=== PATIENT | female | born 1940 | race Two or more races ===

== ENCOUNTER 2025-04-28 11:26 | Emergency (ER) | payer OTHER ==
[~2025-04-28] VITALS: Ht 167.6 cm; Wt 45.4 kg
[~2025-04-28 11:26] MED LIST: ALBUPOW26 XX; ASPI81CH43 PO; ATEN-60 PO; GABA300C PO; LOSA-534 PO; SIMV20TA20 PO; SIMV5TAB14 PO
[2025-04-28 12:19] VITALS: PULSE 97; RESP 12; O2SAT 99
--- NOTE | 2025-04-28 12:22 | ED.PDOC ---
GI ASSESSMENT HPI Comments 87-year-old female with a PMHx of dementia, neuropathy, A. Fib, diabetes, possible liver cancer (awaiting biopsy scheduled on 15 May 2025), recent biliary duct stent done in [facility] (last week) was brought via EMS with chief complaints of nausea, vomiting and hematemesis. Patient's family reports that today morning the patient had nausea and a few episodes of vomiting with hematemesis. EMS found blood in the trash bin and family reports of also noting that her stool was dark black in color since today morning. They report she is A&O x2 which is her baseline, is forgetful due to dementia and she was hospitalized for 1 week, last week at [facility] as she had sudden onset of jaundice and was taken to urgent care who urged them to take her visit the hospital. A CT scan at [facility] resulted a mass in the patient's liver, possibly liver cancer and the patient is awaiting for biopsy which is scheduled on 15 May 2025. Patient was discharged on 04/23/2025 (5 days ago) home from [facility] after a biliary stent was placed. Family also complains of bilateral leg swelling which is new. Patient's blood pressure was 85/28mmHg on admission. Chief Complaint: General Weakness Time Seen by MD: 11:34 Reviewed Notes: Medications, Allergies Allergies: Coded Allergies: NO KNOWN ALLERGIES (Unverified , 12/23/11) Home Meds Reported Medications Albuterol (Albuterol) Pow, 1 XX PRN 12/23/11 Gabapentin (Neurontin) 300 Mg Cap, 300 MG PO BID 12/23/11 Aspirin (Asa) 81 Mg Ch, 81 MG PO DAILY 12/23/11 Simvastatin (Simvastatin) 20 Mg Tab, 20 PO HS 12/23/11 Simvastatin (Simvastatin) 5 Mg Tab, 5 MG PO HS 12/23/11 Losartan Potassium (Losartan Potassium) 50 Mg Tab, 50 MG PO DAILY 12/23/11 Atenolol (Atenolol) 25 Mg Tab, 25 MG PO DAILY 12/23/11 Information Source: Legal Guardian Mode of Arrival: EMS Timing: Hours Duration: Minutes Prehospital treatment: None Vomitus: Bloody Stool: Black Recent: Recent Surgery (Biliary duct stent placed last week) Recent Hx of: Diabetes, Liver Disease Modifying Factors: Nothing Associated sign and symptoms: Nausea, Vomiting Past Medical History PAST MEDICAL HISTORY: Asthma, High Lipids, HTN Surgical History: Hysterectomy Family History Family History: No family hx of Heart ruben, No family hx of HTN Social History Smoker: Non-Smoker Alcohol: Rarely Drugs: Denies Drug Use Lives In: Home Constitutional: reports: others (Patient has generalized jaundiced, A&Ox 2); denies: chills, diaphoresis, fatigue, fever, malaise, sweats, weakness EENTM: denies: blurred vision, double vision, ear bleeding, ear discharge, ear drainage, ear pain, ear ringing, eye pain, eye redness, hearing loss, mouth pain, mouth swelling, nasal discharge, nose bleeding, nose congestion, nose pain, photophobia, tearing, throat pain, throat swelling, voice changes, others Respiratory: denies: cough, hemoptysis, orthopnea, SOB at rest, shortness of breath, SOB with excertion, stridor, wheezing, others Cardiovascular: denies: chest pain, dizzy spells, diaphoresis, Dyspnea on exertion, edema, irregular heart beat, left arm pain, lightheadedness, palpitations, PND, syncope, others Gastrointestinal: reports: hematemesis, nausea, poor appetite, vomiting; denies: abdomen distended, abdominal pain, blood streaked bowels, constipated, diarrhea, dysphagia, difficulty swallowing, melena, poor fluid intake, rectal bleeding, rectal pain, others Genitourinary: denies: abnormal vagina bleeding, burning, dyspareunia, dysuria, flank pain, frequency, hematuria, incontinence, pain, , vagina disc harge, urgency, others Neurological: denies: dizziness, fainting, headache, left sided numbness, left sided weakness, numbness, paresthesia, pre-existing deficit, right sided numbness, right sided weakness, seizure, speech problems, tingling, tremors, weakness, others Musculoskeletal: denies: back pain, gout, joint pain, joint swelling, muscle pain, muscle stiffness, neck pain, others Integumetry: reports: others (Generalized jaundice); denies: bruises, change in color, change in hair/nails, dryness, laceration, lesions, lumps, rash, wounds Allergic/Immunocompromised: denies: Difficulty Healing, Frequent Infections, Hives, Itching, others Hematologic/Lymphatic: denies: anemia, blood clots, easy bleeding, easy bruising, swollen glands, others Endocrine: denies: excessive hunger, excessive sweating, excessive thirst, excessive urination, flushing, intolerance to cold, intolerance to heat, unexplained weight gain, unexplained weight loss, others Psychiatric: denies: anxiety, bipolar disorder, depression, hopeless, panic disorder, schizophrenia, sleepless, suicidal, others Physical Exam General Appearance: Moderate Distress, Other (Generalized jaundice) HEENT: Normal ENT Inspection, Scleral Icterus (R) Neck: Non-Tender, Normal, Normal Inspection Respiratory: Decreased Breath Sounds, Respiratory Distress, Other (On 6 L of oxygen via nasal cannula) Cardiovascular: No JVD, No Murmur, Regular Rate/Rhythm, Other (Presence of +2 pitting edema up to the knee, low blood pressure 107/32 mmHg) Breast Exam: Deferred Gastrointestinal: Other (Soft, nontender, presence of melena, no masses palpated) Genitalia: Deferred Pelvic: Deferred Rectal: Black stool Extremities: Leg edema Neurologic: Other (A&O x2, sensorimotor deficits unable to be assessed) Cerebellar Function: Unable to Test Reflexes: NOT DONE Skin: Jaundice Lymphatic: Other (No cervical lymphadenopathy present) EKG EKG : Pulse Rate (adult): 111 Comments Heart rate [address]-T changes AFib RVR Was a procedure done? 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 Indication: Hypotension, Volume resuscitation Room prepared for procedure: Yes Lapper performed hand hygien: Yes Maximal sterile barrier precau: Mask/Eye shield, Sterile gown, Cap, Sterlie gloves, Large sterlie drape Skin Preparation: Chlorhexidine gluconate, Providine iodine Skin preparation completely dr: Yes Insertion site: Right, Internal jugular Central line catheter type: [id number] dialysis Number of lumens: 3 Central line exchanged over a: No Antiseptic ointment applied to: No Post Assessment: Chest X-Ray, Proper placement, No Pneumothorax Informed consent obtained: Yes Risks/benefits/alt described: Yes Notes Procedure performed by myself and also resident physician Margot GI differential Dx Differential Diagnosis: Cholangitis, GI hemorrhage, Esophageal Varicies Other Differential Diagnosis Hepatic cancer, varices causing GI bleed X-Ray, Labs, Meds, VS Vital Signs Date Time Temp Pulse Resp B/P (MAP) Pulse Ox O2 Delivery O2 Flow Rate FiO2 04/28/25 21:07 97.7 109 28 101/23 (49) 93 97.7 04/28/25 20:15 111 24 101/32 (55) 96 04/28/25 20:00 106 20 91/34 (53) 97 04/28/25 20:00 91/34 04/28/25 19:45 87/18 04/28/25 19:45 105 26 87/18 (41) 98 04/28/25 19:30 109 19 115/40 (65) 98 04/28/25 19:30 115/40 04/28/25 19:30 97.7 105 28 115/40 (65) 98 97.7 04/28/25 19:30 98 Nasal Cannula* 2 28 04/28/25 19:15 104 22 102/28 (52) 99 04/28/25 19:00 99/21 04/28/25 19:00 118 23 99/71 (80) 96 04/28/25 18:45 114 26 110/30 (56) 98 04/28/25 18:30 98.1 103 24 106/35 (58) 97 98.1 04/28/25 18:15 108 18 99/34 (55) 98 04/28/25 18:00 104/34 04/28/25 18:00 97 14 104/34 (57) 98 04/28/25 17:45 99 16 108/39 (62) 99 04/28/25 17:30 90 16 121/32 (61) 99 04/28/25 17:15 109 20 110/46 (67) 99 04/28/25 17:00 99/26 04/28/25 17:00 93 21 99/26 (50) 99 04/28/25 16:55 89/18 04/28/25 16:50 85/21 04/28/25 16:45 94 16 76/23 (40) 99 04/28/25 16:45 76/23 04/28/25 16:40 82/34 04/28/25 16:35 78/21 04/28/25 16:33 68/35 04/28/25 16:30 98 16 68/35 (46) 100 04/28/25 14:52 86 19 91/28 (49) 100 04/28/25 14:37 111 04/28/25 14:20 96 17 84/14 (37) 100 04/28/25 12:19 97 12 99 Nasal Cannula* 2 28 04/28/25 12:19 97.8 72 19 103/37 (59) 100 97.8 04/28/25 11:27 97.7 65 18 90/28 94 97.7 Lab Test 04/28/25 16:10 04/28/25 13:20 04/28/25 12:21 Range/Units Lactic Acid Level 1.8 2.3 *H 0.4-2.0 mmol/L White Blood Count 9.5 4.4-10.8 10^3/uL Red Blood Count 3.14 L 4.0-5.20 10^6/uL Hemoglobin 10.2 L 12.2-16.2 g/dL Hematocrit 30.2 L 36.0-46.0 % Mean Corpuscular Volume 96.1 80.0-100.0 fL Mean Corpuscular Hemoglobin 32.6 H 28.0-32.0 pg Mean Corpuscular Hemoglobin Concent 33.9 32.0-36.0 g/dL Red Cell Distribution Width 15.6 H 11.8-14.3 % Platelet Count 131 L 140-450 10^3/uL Mean Platelet Volume 10.8 6.9-10.8 fL Neutrophils (%) (Auto) 37.0-80.0 % Lymphocytes (%) (Auto) 10.0-50.0 % Monocytes (%) (Auto) 0.0-12.0 % Basophils (%) (Auto) 0.0-2.0 % Neutrophils # (Auto) 1.6-8.6 10 ^3/uL Lymphocytes # (Auto) 0.4-5.4 10 ^3/uL Monocytes # (Auto) 0-1.3 10 ^3/uL Differential Total Cells Counted 100.0 100 Neutrophils % (Manual) 88 H 37.0-80.0 Band Neutrophils % (Manual) 1 Lymphocytes % (Manual) 5 L 10.0-50.0 Monocytes % (Manual) 6 0-12 Eosinophils % (Manual) 0 0-7 Basophils % (Manual) 0 0.0-2.0 Metamyelocytes % (manual) 0 Myelocytes % (Manual) 0 Promyelocytes % (Manual) 0 Blast Cells % (Manual) 0 Reactive Lymphocytes 0 Platelet Estimate Decrea Large Platelets Few Sodium Level 138 136-145 mmol/L Potassium Level 3.9 3.5-5.1 mmol/L Chloride Level 94 L 98-107 mmol/L Carbon Dioxide Level 30 20-31 mmol/L Anion Gap 14 5-15 Blood Urea Nitrogen 72 H 9-23 mg/dL Creatinine 1.99 H 0.550-1.02 mg/dL Glomerular Filtration Rate Calc 24 >90 mL/min BUN/Creatinine Ratio 36.2 H 10.0-20.0 Serum Glucose 103 74-106 mg/dL Calcium Level 8.5 L 8.7-10.4 mg/dL Total Bilirubin 18.5 H 0.2-1.0 mg/dL Aspartate Amino Transferase (AST) 253 H 13-40 U/L Alanine Aminotransferase (ALT) 111 H 7-40 U/L Alkaline Phosphatase 997 H 46-116 U/L B-Type Natriuretic Peptide 54.59 0-100 pg/mL Total Protein 5.2 L 5.7-8.2 g/dL Albumin 3.2 3.2-4.8 g/dL Stool Occult Blood Pos x1 Negative Stool Occult Blood Sample #3 Negative Microbiology Date/Time Source Procedure Growth Status 04/28/25 13:20 Blood Blood Culture - Preliminary Resulted 04/28/25 13:00 Blood Blood Culture - Preliminary Resulted Images Reviewed?: Images reviewed and evaluated by me Time of 1ST Reevaluation: 13:15 Reevaluation 1ST: Unchanged Time of 2ND Reevaluation: 14:20 Reevaluation 2ND: Worsened Time of 3RD Reevaluation: 17:00 Reevaluation 3RD: Worsened Patient Education/Counseling: Diagnosis, Treatment Family Education/Counseling: Diagnosis, Treatment Comments Patient is A&O x2, brought via EMS for nausea, vomiting and hematemesis as well as melena. In my initial assessment, patient's blood pressure was low 85/28 mmHg, she was saturating at 98% with 6 L of oxygen, had generalized icterus, +2 pitting edema of bilateral extremities. Stool occult blood was ordered and s ample collected had dark black stool. CBC shows low hemoglobin levels 10.2, BMP shows low calcium 8.5, bilirubin is high 18.5, elevated liver enzymes- AST 253, ALT 111, ALP 997. We suspect the patient has possible liver cancer and varices causing the hematemesis as well as melena. Given patient's low blood pressure and b/l leg swelling, we started her immediately on 25g concentrated albumin IV. Once hemoglobin levels resulted 10.2, with her BP not getting maintained, she was started on 1 L bolus NS 0.9% and then Norepinephrine was started. Chest x- ray shows no acute disease. Patient meets sepsis criteria and lactic acid was ordered which came back 2.3 and later to normal 1.8 after fluids. Blood cultures have been ordered. Chest x-ray shows no acute disease. Patient's daughter and son were present and discussion regarding her condition and code status was done- they stated DNR/DNI and signed consent forms for possible blood transfusion, if required. Patient required a central line placement, done under aseptic precautions, which was successful, with no pneumothorax seen in repeat chest x-ray postprocedure. Patient is unstable needs transfer to higher level of care. Dr. Shrestha. Patient personally seen by myself and examined by myself. I spoke with the patient's family who understand patient's critical status and agreeable to DNR DNI status. At this time patient was at [facility] last week for biliary stent placement. Her bilirubin to be a is 18 and there was concern that it may be obstructed. Patient has a member of [facility]ita, [facility] and also Dr[facility] Cr both surgeon and GI specialist who agreed that they are unable to take care of the patient here as she requires an ERCP. They recommended transferred to [facility]. We did contact [facility] however they are at capacity. At this time [facility] has been contacted and I have spoken DKwall has acce[tony the patient. Family is aware the patient will be transferred to [facility]. Air ambulance will be c ontacted for transfer. Patient was hypotensive while in the emergency room and central line was placed. Patient currently on Levophed with a systolic of 118. Patient has not been given a full 30 cc/kilos bolus as she can not tolerate it given her anasarca. SEPSIS Sepsis Screen Recent Procedure: Yes On Antibiotic Therapy: No Respiratory Rate >20: No Heart Rate >90: No Temp<36 C (96.8 F) or >38.3 C: No SBP <90 or MAP <65 mmHG: Yes New Acute Mental Status Change: Yes Is the patient on CPAP, BIPAP,: No IV fluid challenge completed?: No Physician Orders Blood Culture (04/28/25 12:24) Urinalysis (04/28/25 12:24) Chest Portable (04/28/25 12:07) Chest Portable (04/28/25 17:17) Imaging Transfer Request (04/28/25 19:41) Vital Signs Date Time Temp Pulse Resp B/P (MAP) Pulse Ox O2 Delivery O2 Flow Rate FiO2 04/28/25 21:07 97.7 109 28 101/23 (49) 93 97.7 04/28/25 20:15 111 24 101/32 (55) 96 04/28/25 20:00 106 20 91/34 (53) 97 04/28/25 20:00 91/34 04/28/25 19:45 87/18 04/28/25 19:45 105 26 87/18 (41) 98 04/28/25 19:30 109 19 115/40 (65) 98 04/28/25 19:30 115/40 04/28/25 19:30 97.7 105 28 115/40 (65) 98 97.7 04/28/25 19:30 98 Nasal Cannula* 2 28 04/28/25 19:15 104 22 102/28 (52) 99 04/28/25 19:00 99/21 04/28/25 19:00 118 23 99/71 (80) 96 04/28/25 18:45 114 26 110/30 (56) 98 04/28/25 18:30 98.1 103 24 106/35 (58) 97 98.1 04/28/25 18:15 108 18 99/34 (55) 98 04/28/25 18:00 104/34 04/28/25 18:00 97 14 104/34 (57) 98 04/28/25 17:45 99 16 108/39 (62) 99 04/28/25 17:30 90 16 121/32 (61) 99 04/28/25 17:15 109 20 110/46 (67) 99 04/28/25 17:00 99/26 04/28/25 17:00 93 21 99/26 (50) 99 04/28/25 16:55 89/18 04/28/25 16:50 85/21 04/28/25 16:45 94 16 76/23 (40) 99 04/28/25 16:45 76/23 04/28/25 16:40 82/34 04/28/25 16:35 78/21 04/28/25 16:33 68/35 04/28/25 16:30 98 16 68/35 (46) 100 04/28/25 14:52 86 19 91/28 (49) 100 04/28/25 14:37 111 04/28/25 14:20 96 17 84/14 (37) 100 04/28/25 12:19 97 12 99 Nasal Cannula* 2 28 04/28/25 12:19 97.8 72 19 103/37 (59) 100 97.8 04/28/25 11:27 97.7 65 18 90/28 94 97.7 Laboratory Tests Test 04/28/25 13:20 04/28/25 16:10 Lactic Acid Level 2.3 mmol/L (0.4-2.0) *H 1.8 mmol/L (0.4-2.0) White Blood Count 9.5 10^3/uL (4.4-10.8) Departure 1 Departure Time of Disposition: 18:32 Impression: Primary Impression: Upper GI bleeding Additional Impressions: Hyperbilirubinemia Jaundice Hypotension requiring administration of vasopressor Disposition: 02 SHORT TERM HOSPITAL Admit to: Tele Condition: Unstable Critical Care Note Critical Care Time?: Yes (120 min) Critical care comment: Time does not include procedure time. At this time time spent evaluating the patient, speaking to family, speaking to the patient obtaining consent, speaking to resident physician, speaking to heritage, speaking to nursing staff and front end loader operator regarding transfer, attempting transfer, multiple re-evaluations of the patient. Evaluating patient's lab work and treatment plan Stability Stability form required: No Heart Score Heart Score: Heart Score Response (Comments) Value History N/A 0 EKG N/A 0 Age N/A 0 Risk Factors N/A 0 Troponin N/A 0 Total 0 TITA SHRESTHA MD Apr 28, 2025 12:22 MARI BRITTON Apr 28, 2025 14:00
[2025-04-28] MEDS: ALBUMIN 25% 100 ML IV ONE (12:28)
[2025-04-28 13:42] LABS: Hematocrit 30.2 % (36.0-46.0); Hemoglobin 10.2 g/dL (12.2-16.2); Mean Corpuscular Hemoglobin 32.6 pg (28.0-32.0); Mean Corpuscular Volume 96.1 fL (80.0-100.0)
--- NOTE | 2025-04-28 13:46 | DVH ---
CHEST RADIOGRAPH Indication: ro pna Technique: Single frontal view of the chest was obtained COMPARISON: None FINDINGS: Lines and Tubes: None Lungs: Clear Pleura: No effusion. No pneumothorax. Cardiomediastinal contours: Unremarkable Bones: Unremarkable IMPRESSION: No acute disease.
[2025-04-28 13:51] LABS: Albumin 3.2 g/dL (3.2-4.8); Anion Gap 14 (5-15); Carbon Dioxide 30 mmol/L (20-31); Glucose 103 mg/dL (74-106); Potassium 3.9 mmol/L (3.5-5.1); Sodium 138 mmol/L (136-145)
[2025-04-28 13:53] LABS: Alanine Aminotransferase 111 U/L (7-40); Alkaline Phosphatase 997 U/L (46-116); Bilirubin, Total 18.5 mg/dL (0.2-1.0); Blood Urea Nitrogen 72 mg/dL (9-23); Calcium 8.5 mg/dL (8.7-10.4); Chloride 94 mmol/L (98-107)
[2025-04-28 14:06] LABS: Total Cells Counted 100.0 (100)
[2025-04-28 14:31] LABS: BUN/Creatinine Ratio 36.2 (10.0-20.0)
[2025-04-28 14:40] LABS: Lactic Acid w/Reflex 2.3 mmol/L (0.4-2.0)
[2025-04-28 14:41] LABS: Total Protein 5.2 g/dL (5.7-8.2)
[2025-04-28] MEDS: NOREPINEPHRINE 8 MG/250ML KIT 250 ML IV ONE (15:20)
[2025-04-28] MEDS: SODIUM CHLORIDE 0.9% 1,000 ML IV ONE (15:55)
[2025-04-28] MEDS: NOREPINEPHRINE 8 MG/250ML KIT 250 ML IV SCH (16:33)
--- NOTE | 2025-04-28 17:28 | DVHNC2 ---
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 of machine filler shredder (Sammy Frost) Indication: Hypotension, CVP monitoring, Volume resuscitation, Inability to obtain IV, Suspected infection Room prepared for procedure: Yes Boom Master performed hand hygien: Yes Maximal sterile barrier precau: Mask/Eye shield, Sterile gown, Cap, Sterlie gloves, Large sterlie drape Skin Preparation: Chlorhexidine gluconate, Providine iodine Skin preparation completely dr: Yes Insertion site: Right, Internal jugular Central line catheter type: Eui-[id number]-ljw dialysis Number of lumens: 3 Central line exchanged over a: No Antiseptic ointment applied to: No Post Assessment: Chest X-Ray, No Pneumothorax Informed consent obtained: Yes Risks/benefits/alt described: Yes Notes A time out was performed. My hands were washed immediately prior to the procedure. I wore a surgical cap, mask with protective eyewear, full gown and sterile gloves throughout the procedure. The patient was placed in T rendelenburg position. RIGHT chest region was prepped using chlorhexidine scrub and draped in sterile fashion using a full drape and sterile probe cover and sterile gel employed. The medial and lateral heads of the sternocleidomastoid muscle were identified as was the carotid pulse. The Internal Jugular vein was identified using the ultrasound. Anesthesia was achieved over the vein using 1% lidocaine. Using real-time out of plane guidance, the introducer needle was inserted into the Internal Jugular vein under direct ultrasound visualization. Venous blood was withdrawn. The syringe was removed and a guidewire was advanced into the introducer needle. The guidewire was visualized in the Internal Jugular Vein by ultrasound. A small incision was made at the skin surface with a scalpel and the introducer needle was exchanged for a dilator over the guidewire. After appropriate dilation was obtained, the dilator was exchanged over the wire for a _ central venous catheter. The wire was removed and the catheter was sutured in place at [address] A sterile sorbaview shield was placed over the catheter at the insertion site. The patient tolerated the procedure without any hemodynamic compromise. At time of procedure completion, all ports aspirated and flushed properly. Post-procedure chest x-ray shows no pneumothorax. Estimated blood loss is 5 ml Date of Service: Apr 28, 2025 Billing Provider: TITA SANTILLAN MD Common Visit Codes: PROCEDURE ONLY SAMMY FROST RESIDENT Apr 28, 2025 17:28
--- NOTE | 2025-04-28 18:03 | DVH ---
CHEST RADIOGRAPH Indication: CENTRAL LINE PLACEMENT Technique: Single frontal view of the chest was obtained Comparison: XY CHEST PORTABLE on DOS: 04/28/25 FINDINGS: Lines and Tubes: Right internal jugular catheter in place with the tip at the cavoatrial junction or just within the right atrium. Lungs: No focal consolidation. No pneumothorax. Pleura: No effusion. Cardiomediastinal contours: Unremarkable Bones: No acute osseous abnormality. IMPRESSION: 1. Central line in place from the right internal jugular vein with the tip at the cavoatrial junction or just within the right atrium.
[2025-04-28 19:30] VITALS: O2SAT 98
[2025-04-28] MEDS: PIPERACILLIN-TAZOB 3.375GM 100 ML IV ONE (20:42)
[2025-04-28 21:07] VITALS: BP 101/23; PULSE 109; RESP 28; TEMP 97.7; O2SAT 93
--- NOTE | 2025-05-02 14:13 | ECG ---
[facility] Test Date: 2025-04-28 Test Time: 11:30:14 Pat Name: ELIANE PHILLIPS Department: ED Room: Gender: F Career Services Manager: ARACELIS : 1940 Requested By: TITA SANTILLAN Order Number: [id number] Reading MD: Jostin Michelle Measurements Intervals [place] Rate: 111 P: 0 DE: 0 QRS: 7 QRSD: 71 T: 152 QT: 348 QTc: 473 Interpretive Statements Atrial fibrillation Low voltage, precordial leads Nonspecific T abnormalities, lateral leads Electronically Signed On 05-04-2025 18:58:34 PST by Jostin Michelle Please click the below link to view image of tracing.
== END 2025-04-28 21:30 | disposition short-term general hospital (02) ==
LOC: ER 11:26 → EDBD 11:26 → ER 21:28
DX: K92.2 Gastrointestinal hemorrhage, unspecified (principal); E80.6 Other disorders of bilirubin metabolism; R17 Unspecified jaundice; I95.89 Other hypotension; F10.90 Alcohol use, unspecified, uncomplicated; I10 Essential (primary) hypertension; E11.40 Type 2 diabetes mellitus with diabetic neuropathy, unspecified; J45.909 Unspecified asthma, uncomplicated; Z95.9 Presence of cardiac and vascular implant and graft, unspecified; Z90.710 Acquired absence of both cervix and uterus; Z79.899 Other long term (current) drug therapy; Z79.82 Long term (current) use of aspirin
CPT/HCPCS: 36415; 36556; 71045; 80053; 82270; 83605; 83880; 85007; 85027; 86850; 86900; 86901; 87040; 87077; 87186; 93005; 96361; 96365; 96367; 99291; 99292; J2543; J7030; P9047; 96366